=== PATIENT | male | born 1970 | race Caucasian/White ===

== ENCOUNTER 2016-06-30 18:56 | Emergency (ER) | payer OTHER ==
[~2016-06-30] VITALS: Ht 160 cm; Wt 66.2 kg
[~2016-06-30 18:56] MED LIST: Z.0.NO CURRENT MEDS
[2016-06-30 19:01] VITALS: BP 130/85; PULSE 94; RESP 16; TEMP 98.2; O2SAT 96
--- NOTE | 2016-06-30 19:09 | PD ---
HPI Chief Complaint: Left Wrist Pain Time Seen by Provider: 19:09 Travel History International Travel<30 days: No Contact w/Intl Traveler<30days: No Traveled to known affect area: No History of Present Illness HPI 46-year-old male presents to emergency department acute onset left wrist pain and swelling since working this afternoon. 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 Patient denies any specific injury but has gotten progressively worsening pain, stiffness, and swelling in the left wrist since approximately 1 p.m. this afternoon. Pain is approximately 8/10 with movement or palpation. Patient has no fever, chills, or other symptoms. No acute open wounds. 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 Patient has no history of IV drug use. He has tried ice but that seemed to make it worse according the patient. No history of gout. He is allergic to Demerol. [facility] [place] Social History Alcohol Use: Yes (OFTEN) Tobacco Use: Yes (1 PPD) Substance Use: No Allergies-Medications (Allergen,Severity, Reaction): Coded Allergies: Demerol (Verified Allergy, Severe, Rash, 06/30/16) Reported Meds & Prescriptions Reported Meds & Active Scripts Active No Active Prescriptions or Reported Medications Review of Systems Except as stated in HPI: all other systems reviewed are Neg General / Constitutional: No: Fever Eyes: No: Visual changes HENT: No: Headaches Cardiovascular: No: Chest Pain or Discomfort Respiratory: No: Shortness of Breath Gastrointestinal: No: Abdominal Pain Genitourinary: No: Dysuria Musculoskeletal: Positive: Myalgias, Arthralgias, Limited ROM, Pain (see history present illness.) Skin: No Rash Neurologic: No: Weakness Psychiatric: No: Depression Endocrine: No: Polydipsia Hematologic/Lymphatic: No: Easy Bruising Physical Exam Narrative GENERAL: Patient appears in no acute distress. SKIN: Warm and dry. Normal color. Normal turgor. Patient has multiple old scabs on both forearms, but no active signs of cellulitis currently. HEAD: Atraumatic. Normocephalic. EYES: Pupils equal and round. No scleral icterus. No injection or drainage. ENT: No nasal bleeding or discharge. Mucous membranes pink and moist. Pharynx is clear. Airway is patent. NECK: Trachea midline. Neck is supple. No bony tenderness or step-off. Range of motion is full without discomfort. CARDIOVASCULAR: Regular rate and rhythm. No murmurs gallops or rubs. RESPIRATORY: No accessory muscle use. Clear to auscultation. Breath sounds equal bilaterally. MUSCULOSKELETAL: Extremities without clubbing, cyanosis, or edema. No obvious deformities. Patient appears to be somewhat swollen over the left dorsal wrist with tenderness specifically along the dorsal aspect consistent with tenosynovitis. Pain is worse with supination and pronation as well as flexion and extension of the hand. Patient can make a fist but is uncomfortable necessary as well. Neurovascular exam is unremarkable. Patient has no pain in the proximal forearm, elbow, or upper arm on the left. Rest of his exam is unremarkable. NEUROLOGICAL: Awake and alert. No obvious cranial nerve deficits. Motor grossly within normal limits. Five out of 5 muscle strength in the arms and legs. Normal speech. PSYCHIATRIC: Appropriate mood and affect; insight and judgment normal. Data Data Last Documented VS Vital Signs Date Time Temp Pulse Resp B/P Pulse Ox O2 Delivery O2 Flow Rate FiO2 06/30/16 19:01 98.2 94 16 130/85 96 Orders Ketorolac Inj (Toradol Inj) (06/30/16 19:15) Wrist, Complete ([id number]) (06/30/16 19:11) Splint Or Brace Apply/Monitor (06/30/16 19:30) [facility] Medical Decision Making Medical Screen Exam Complete: Yes Emergency Medical Condition: Yes Differential Diagnosis Left wrist sprain. Tenosynovitis. Possible fracture. Narrative Course Patient is medically stable at time of exam. X-ray of the left wrist is ordered. Patient is given 60 mg Toradol IM. X-ray shows no acute fracture or dislocation. Patient is felt to have tenosynovitis of the left wrist from a workplace overuse. Patient is placed in a Velcro wrist splint to the left wrist and forearm. Patient will be placed on ibuprofen 800 mg 3 times daily with food. Patient is to use warm soaks followed by ice 3-4 times daily. Worker's Comp. forms are completed with limited use of left arm until cleared. Patient should follow-up with his Worker's Comp. provider in the next week to ensure improvement. Diagnosis Primary Impression: Extensor tenosynovitis of left wrist Patient Instructions: General Instructions, Upper Extremity Tenosynovitis (DC) Additional Instructions: Patient is given 60 mg Toradol IM. X-ray shows no acute fracture or dislocation. Patient is felt to have tenosynovitis of the left wrist from a workplace overuse. Patient is placed in a Velcro wrist splint to the left wrist and forearm. Patient will be placed on ibuprofen 800 mg 3 times daily with food. Patient is to use warm soaks followed by ice 3-4 times daily. Worker's Comp. forms are completed with limited use of left arm until cleared. Patient should follow-up with his Worker's Comp. provider in the next week to ensure improvement. Med/Other Pt SpecificInfo: Prescription(s) given Scripts Ibuprofen 800 Mg [id number] Mg PO Q8H PRN (Pain/Inflammation) #30 TAB Prov:Robin Baldwin MD 06/30/16 Disposition: 01 DISCHARGE HOME Condition: Stable Carrington Nieto June 30, 2016 19:09
[2016-06-30] MEDS ORDERED: KETOROLAC TROMETHAMINE 60 MG/2 ML (IM) VIAL IM ONE (19:15)
--- NOTE | 2016-06-30 19:33 | RADHPO ---
EXAM DATE/TIME: 06/30/2016 19:17 [facility] COMPARISON: No previous studies available for comparison. INDICATIONS : Left wrist pain. Patient states he injured it at work lifting heavy objects. MEDICAL HISTORY : None. SURGICAL HISTORY : None. ENCOUNTER: Initial ACUITY: 1 day PAIN SCORE: 7/10 LOCATION: Left wrist. FINDINGS: Three view examination of the left wrist demonstrates no soft tissue swelling, dislocation, or fractu re. The carpal bones are in normal alignment. The joint spaces are maintained. Bony mineralization is normal. CONCLUSION: Unremarkable examination of the left wrist. Pavan Toribio MD on June 30, 2016 at 19:30 Board Certified Radiologist. This report was verified electronically.
[2016-06-30] MEDS ORDERED: IBUP800T23 PO (19:34)
== END 2016-06-30 19:40 | disposition home or self-care (01) ==
LOC: PHEFT 18:56
DX: M65.842 Other synovitis and tenosynovitis, left hand (principal); F17.210 Nicotine dependence, cigarettes, uncomplicated; X50.3XXA Overexertion from repetitive movements, initial encounter; Y93.9 Activity, unspecified; Y92.9 Unspecified place or not applicable; Y99.0 Civilian activity done for income or pay
CPT/HCPCS: 73110; 96372; 99283; J1885; L3908

== ENCOUNTER 2017-06-04 09:29 | Emergency (ER) | payer OTHER ==
[~2017-06-04] VITALS: Ht 157.5 cm; Wt 66.0 kg
[~2017-06-04 09:29] MED LIST changes: +IBUP1TAB7 PO; -Z.0.NO CURRENT MEDS
[2017-06-04 09:31] VITALS: BP 158/92; PULSE 86; RESP 16; TEMP 97.2; O2SAT 96
--- NOTE | 2017-06-04 09:52 | PD ---
HPI Chief Complaint: Abdominal Pain Time Seen by Provider: 09:51 Travel History International Travel<30 days: No Contact w/Intl Traveler<30days: No Traveled to known affect area: No History of Present Illness HPI Patient is a 47-year-old male presents emergency department for mild abdominal cramping associated with the swelling in his right groin. Patient thinks he has a hernia. 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 He states symptoms are present only for the past few days, waxing and waning, not associate with nausea vomiting diarrhea fevers blood in the stool, context as above. PFSH Past Medical History Medical History: Denies Significant Hx Tetanus Vaccination: Unknown Influenza Vaccination: No Past Surgical History Surgical History: No Previous Surgery Social History Alcohol Use: Yes (6 pack/day) Tobacco Use: Yes (3/4 PPD) Substance Use: No Allergies-Medications (Allergen,Severity, Reaction): Coded Allergies: meperidine (Unverified Allergy, Severe, Rash, 06/04/17) Reported Meds & Prescriptions Reported Meds & Active Scripts Active Ibuprofen 800 Mg Tab 800 Mg PO Q8H PRN Review of Systems Except as stated in HPI: all other systems reviewed are Neg Physical Exam Narrative GENERAL: Well-nourished, well-developed patient. Smiling and laughing peer SKIN: Focused skin assessment warm/dry. HEAD: Normocephalic. EYES: No scleral icterus. No injection or drainage. NECK: Supple, trachea midline. No JVD or lymphadenopathy. CARDIOVASCULAR: Regular rate and rhythm without murmurs, gallops, or rubs. RESPIRATORY: Breath sounds equal bilaterally. No accessory muscle use. GASTROINTESTINAL: Abdomen soft, non-tender, nondistended. No rebound no percussive tenderness, there is a right indirect inguinal hernia which is reduced easily in Trendelenburg position. There is no overlying erythema. MUSCULOSKELETAL: No cyanosis, or edema. BACK: Nontender without obvious deformity. No CVA tenderness. Data Data Last Documented VS Vital Signs Date Time Temp Pulse Resp B/P (MAP) Pulse Ox O2 Delivery O2 Flow Rate FiO2 06/04/17 09:31 97.2 86 16 158/92 (114) 96 Orders Orders Ed Discharge Order (06/04/17 09:52) MDM Medical Decision Making Medical Screen Exam Complete: Yes Emergency Medical Condition: Yes Differential Diagnosis Indirect inguinal hernia, strangulation excluded clinically, incarceration excluded clinically. Narrative Course Patient room to the emergency department, has uncomplicated inguinal hernia, reduced easily, no indication further workup in the emergency department, discussed signs symptoms for entrapment and strangulation, discussed need for follow-up with general surgeon return to ED criteria. He is stable for discharge Diagnosis Primary Impression: Inguinal hernia of right side without obstruction or gangrene Referrals: Garret Gerber MD Patient Instructions: General Instructions, Inguinal Hernia (DC) Additional Instructions: Try inguinal hernia brace, available at [address] Disposition: 01 DISCHARGE HOME Condition: Stable Miki Ayala MD Jun 04, 2017 09:52
== END 2017-06-04 10:15 | disposition home or self-care (01) ==
LOC: PHED 09:29
DX: K40.90 Unilateral inguinal hernia, without obstruction or gangrene, not specified as recurrent (principal); F17.210 Nicotine dependence, cigarettes, uncomplicated; Z88.8 Allergy status to other drugs, medicaments and biological substances
CPT/HCPCS: 99282